=== PATIENT | male | born 1970 | race Two or more races ===

== ENCOUNTER 2020-11-18 18:58 | Inpatient (IN) | payer MEDICAID ==
[~2020-11-18] VITALS: Ht 180.3 cm; Wt 82.6 kg
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
[2020-11-18] MEDS ORDERED: ACETAMINOPHEN ES 500 MG TABLET ONE (20:00)
[2020-11-18] MEDS ORDERED: ACETAMINOPHEN 325 MG TABLET PO ONE (20:00)
[2020-11-18] MEDS ORDERED: KETOROLAC TROMETHAMINE INJ 30 MG/ML VIAL IV ONE (20:00)
[2020-11-18] MEDS ORDERED: IV NS 0.9% 1,000 ML BAG IV ONE ×2 (20:00→23:30)
[2020-11-18] MEDS ORDERED: KETOROLAC TROMETHAMINE 15 MG/ML VIAL ONE (20:00)
[2020-11-18 20:47] LABS: BASOPHILS % (AUTO) 0.2 % (0.0-2.0); EOSINOPHILS % (AUTO) 0.7 % (0.0-6.0); HEMATOCRIT 30 % (39-51); HEMOGLOBIN 10.1 g/dL (13.5-17.5); LYMPHOCYTES # (AUTO) 1.1 /CMM (0.8-4.8); LYMPHOCYTES % (AUTO) 11.9 % (20.0-44.0); MEAN CORPUSCULAR HGB CONC 33 g/dl (31.0-36.0); MEAN CORPUSCULAR VOLUME 97 fL (80-96); MONOCYTES % (AUTO) 10.6 % (2.0-12.0); NEUTROPHILS # (AUTO) 7.2 /CMM (1.8-8.9); NEUTROPHILS % (AUTO) 76.6 % (43.0-81.0); PLATELET COUNT (AUTO) 300 /CMM (150-450); RED BLOOD CELL COUNT(AUTO) 3.13 MIL/uL (4.5-6.0); WHITE BLOOD COUNT (AUTO) 9.4 K/uL (4.3-11.0)
[2020-11-18 21:00] LABS: ALBUMIN 2.6 g/dL (3.4-5.0); BILIRUBIN,DIRECT 0.7 mg/dL (0.0-0.2); BILIRUBIN,TOTAL 1.9 mg/dL (0.2-1.0); CALCIUM, SERUM 8.3 mg/dL (8.5-10.1); CREATININE 0.5 mg/dL (0.6-1.3); POTASSIUM 4.1 mmol/L (3.5-5.1); TOTAL PROTEIN, SERUM 7.3 g/dL (6.4-8.2)
--- NOTE | 2020-11-18 22:05 | NUR ---
NOTED ECCHYMOSIS R LOWER EXT AND GROIN. AWARE
[2020-11-18] MEDS ORDERED: PIPERACILLIN /TAZOBACTAM 3.375 G in IV D5W 50 ML IV ONE (22:30)
[2020-11-18] MEDS ORDERED: LEVOFLOXACIN 750 MG /D5W 150ML 150 ML IV ONE ×2 (22:30→22:37)
--- NOTE | 2020-11-18 22:35 | NUR ---
ER TALKING TO DR. ROSS REGARDING PT ADMISSION.
[2020-11-18] MEDS ORDERED: PIPERACILLIN /TAZOBACTAM 3.375 G VIAL IV ONE (22:37)
--- NOTE | 2020-11-18 22:50 | NUR ---
US TECH AT BED SIDE
--- NOTE | 2020-11-18 23:11 | NUR ---
Michael santiago in EDM - 11/18/20 at 2311 by KYAW FELICIA LUI TALKING TO DR. ROSS REGARDING PT ADMISSION.
--- NOTE | 2020-11-18 23:11 | NUR ---
LAB CALLED REGARDING NEGATIVE COVID RESULT.
--- NOTE | 2020-11-18 23:16 | NUR ---
NOTED HYPOTENSION, MD AWARE
[2020-11-18] MEDS ORDERED: MAGNESIUM HYDROXIDE 30 ML UDC PO PRN (23:30)
[2020-11-18] MEDS ORDERED: ZOLPIDEM TARTRATE 5 MG TABLET PO PRN (23:30)
[2020-11-18] MEDS ORDERED: ACETAMINOPHEN 325 MG TABLET PO PRN (23:30)
[2020-11-18] MEDS ORDERED: MAG HYDROX/AL HYDROX/SIMETH 30 ML UDC PO PRN (23:30)
[2020-11-18] MEDS ORDERED: Z GUARD REMEDY 2 OZ OINT TP PRN (23:30)
[2020-11-18] MEDS ORDERED: HYDROCODONE/APAP 5/325MG TABLET PO PRN (23:30)
[2020-11-18] MEDS ORDERED: ONDANSETRON HCL/PF 4 MG/2 ML VIAL IVP PRN (23:30)
--- NOTE | 2020-11-18 23:33 | NUR ---
REPORT GIVEN TO ALIDA
[2020-11-19] MEDS ORDERED: VANCOMYCIN 2 GM in IV D5W 500 ML IV ONE (00:30)
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
--- NOTE | 2020-11-19 00:52 | NUR ---
PT WAS TRANSFERRED TO RM 109 UNDER ACLS
[2020-11-19] MEDS ORDERED: VANCOMYCIN 1 GM VIAL ONE (01:14)
[2020-11-19 01:25] VITALS: BP 127/83
--- NOTE | 2020-11-19 02:00 | NUR ---
RN NOTE PATIENT HAS MULTIPLIES SKIN DISCOLORATION,TOOK ALL PICTURES AND PLACED IN CHART CONTINUE TO MONITOR.
[2020-11-19 04:00] VITALS: BP 107/63
[2020-11-19] MEDS ORDERED: PIPERACILLIN /TAZOBACTAM 2.25 G VIAL IV ONE (04:16)
[2020-11-19] MEDS ORDERED: ZOSYN IVPB 4.5 G in IV D5W 50ml IV SCH (05:00)
[2020-11-19 06:12] LABS: BASOPHILS % (AUTO) 0.4 % (0.0-2.0); EOSINOPHILS % (AUTO) 2.4 % (0.0-6.0); HEMATOCRIT 28 % (39-51); HEMOGLOBIN 8.9 g/dL (13.5-17.5); LYMPHOCYTES # (AUTO) 1.2 /CMM (0.8-4.8); MEAN CORPUSCULAR HGB CONC 32 g/dl (31.0-36.0); MEAN CORPUSCULAR VOLUME 99 fL (80-96); MONOCYTES # (AUTO) 0.7 /CMM (0.1-1.30); MONOCYTES % (AUTO) 11.8 % (2.0-12.0); NEUTROPHILS # (AUTO) 4.1 /CMM (1.8-8.9); NEUTROPHILS % (AUTO) 66.4 % (43.0-81.0); PLATELET COUNT (AUTO) 227 /CMM (150-450); WHITE BLOOD COUNT (AUTO) 6.2 K/uL (4.3-11.0)
--- NOTE | 2020-11-19 06:34 | NUR ---
RN CLOSING NOTE PATIENT REMAINS ON ALERT ORIENTED X2 VERBALLY RESPONSIVE NO SOB NOT ACUTE DISTRESS NOTED,IV SITE IS ON RIGHT FOREARM INTACT PATIENT,INCONTINENT TO BOWEL AND BLADDER ALL DUE MEDS GIVEN MD ORDERED KEEP CLEAN AND DRY ALL THE TIME,KEPT CALL LIGHT WITHIN REACH,KEPT COMFORTABLE ALL NEEDS MET.ENDORSE NEXT COMING SHIFT FOR CONTINUATION OF CARE.
[2020-11-19 07:34] LABS: ALBUMIN 2.1 g/dL (3.4-5.0); BILIRUBIN,TOTAL 1.6 mg/dL (0.2-1.0); CREATININE 0.5 mg/dL (0.6-1.3); MAGNESIUM 2.1 mg/dL (1.8-2.4); PHOSPHORUS 3.5 mg/dL (2.5-4.9); TOTAL PROTEIN, SERUM 6.2 g/dL (6.4-8.2)
[2020-11-19 07:37] LABS: THYROID STIMULATING HORMONE 1.016 uIU/mL (0.358-3.74)
[2020-11-19 08:00] VITALS: BP 128/80
[2020-11-19] MEDS: VANCOMYCIN 1 GM in IV D5W 250 ML IV SCH ×2 (08:13→17:44)
--- NOTE | 2020-11-19 08:50 | NUR ---
WOUND CARE CONSULT: REVIEWED CHART, NURSING DOCUMENTATION AND PHOTOS WHICH INDICATE DRY ABRASIONS, DISCOLORATIONS, LUIS TO RT HIP AND THIGH AREA, LEFT KNEE DRY SCAB AND INTACT DEEP TISSUE INJURIES TO BILATERAL BUTTOCKS, PRESENT ON ADMISSION. RECOMMENDATIONS MADE FOR SKIN PROTECTION. DISCUSSED WITH NURSING STAFF. PT IS ON [facility] LOW AIRLOSS BED. MD IN AGREEMENT WITH PLAN OF CARE.
[2020-11-19 12:00] VITALS: BP 139/79
[2020-11-19] MEDS: PIPERACILLIN /TAZOBACTAM 4.5 G in IV D5W 50 ML IV SCH ×2 (13:03→18:32)
[2020-11-19 16:00] VITALS: BP 142/71
--- NOTE | 2020-11-19 19:20 | NUR ---
RN OPENING NOTE RECEIVE PATIENT IN BED SITTING,ALERT ORIENTED VERBALLY RESPONSIVE NO SOB NOT ACUTE DISTRESS NOTED,IV SITE IS ON RIGHT AC INTACT PATENT,INCONTINENT TO BOWEL/BLADDER,CALL LIGHT WITHIN REACH,SAFETY MEASURE IMPLEMENT,BED IN LOW POSITION AND LOCKED,BED ALARM IS ON CONTINUE TO MONITOR.
--- NOTE | 2020-11-19 19:23 | NUR ---
RN CLOSING NOTE Patient is alert and oriented . Patient is breathing even and unlabored. on ROOM AIR with 02 sat of 98%. Bed is in lowest and locked position.Patient will be monitored. Call light within reach. Endorsed to next shift for GERMAN
[2020-11-19] MEDS ORDERED: THIAMINE HCL 100 MG TABLET PO SCH (19:30)
[2020-11-19] MEDS ORDERED: FOLIC ACID 1 MG TABLET PO SCH (19:30)
[2020-11-19 20:00] VITALS: BP 117/74
--- NOTE | 2020-11-19 21:00 | NUR ---
2100 DR ROSS NOTIFIED OF PRELIMINARY BLOOD CULTURE RESULT ANAEROBIC GRAM + COCCI IN CHAINS WITH NO ORDER MADE.
--- NOTE | 2020-11-19 21:10 | NUR ---
RN NOTE AT 2100 HE IS SITTING ON BED AND REMOVED IV LINE,CLEANED WITH NS AND DRESSED WITH DRESSING, STARTED A NEW IV LINE ON LEFT HAND #22 G WITH GOOD BLOOD RETURN AND EDUCATED HIM NOT REMOVE HE VERBALIZED UNDERSTOOD CONTINUE TO MONITOR.
--- NOTE | 2020-11-19 21:37 | NUR ---
2136 SUMMONED TO PATIENT'S ROOM, PATIENT SITTING ON EDGE OF BED VERY AGITATED AND STATING HE WANTS TO LEAVE. TALKED TO PATIENT AND ASKED HIM IF THERE'S ANYTHING THAT WE CAN DO TO HELP HIM AND TO MAKE HIM MORE COMFORTABLE BUT DECLINED OFFER. HE STARTED YELLING AND CURSING AT STAFF. DR. ROSS MADE AWARE OF PATIENT'S BEHAVIOR WITH ORDER TO GIVE PATIENT ATIVAN NEEDED FOR AGITATION, HOWEVER, PATIENT REMOVED HIS IV SITES AND HIS HEART MONITOR AND STARTED GETTING DRESSED. HE SAID HE'S CALLING A CAB HIMSELF. DR. ROSS WAS NOTIFIED AGAIN THAT PATIENT REMOVED HIS IV LINES AND IS ADAMANT TO LEAVE THE HOSPITAL AND SHE SAID OK SINCE PATIENT IS ALERT AND ABLE TO SIGN AMA. STACIA IRWIN EXPLAINED TO PATIENT ONCE AGAIN THE RISKS OF LEAVING AMA BUT TO NO AVAIL. ASSISTED PATIENT WITH HIS BELONGINGS AND WHEELED HIM TO LOBBY ACCOMPANIED BY NURSE.
--- NOTE | 2020-11-19 21:40 | NUR ---
RN NOTE PATIENT LEFT AMA AFTER HE SIGNED AMA PAPER EDUCATED HIM RISK OF LEAVE AGAINST MEDICAL ADVICE, HE INSISTED TO LEAVE,DR ROSS NOTIFIED AND SAID HE IS ALERT AND ABLE TO MAKE DECISION BY SELF,HE LEFT UNIT OF [facility] ACCOMPANIED BY HOSPITAL SECURITY GUARDS.
[2020-11-19] MEDS ORDERED: LORAZEPAM INJ 2 MG/ML VIAL IM PRN (22:00)
== END 2020-11-19 22:56 | disposition left against medical advice (07) | DRG 139 ==
LOC: ER 18:59 → TELE1 23:14
PROVIDERS: ADMIT Student in an Organized Health Care Education/Training Program; ATTEND Nurse Practitioner Acute Care
DX: J15.9 Unspecified bacterial pneumonia (principal); E44.0 Moderate protein-calorie malnutrition; E87.1 Hypo-osmolality and hyponatremia; Z20.822 Contact with and (suspected) exposure to COVID-19; R74.01 Elevation of levels of liver transaminase levels; I10 Essential (primary) hypertension; K42.9 Umbilical hernia without obstruction or gangrene; D53.9 Nutritional anemia, unspecified; Z59.0 Homelessness; F10.10 Alcohol abuse, uncomplicated; E86.1 Hypovolemia; Z96.641 Presence of right artificial hip joint; Z68.25 Body mass index [BMI] 25.0-25.9, adult
CPT/HCPCS: 36415; 71045-TC; 73552; 73590-TC; 76705-TC; 80048-TC; 80053-TC; 80061-TC; 80076-TC; 83605-TC; 83735-TC; 84100-TC; 84443-TC; 85025-TC; 87040-TC; 87081-TC; 87186-TC; 93971-TC; C9803; G0378; G0480; J1885; J1956; J2543; J3370; J7030; J7050; J7060; U0003

== ENCOUNTER 2020-12-08 23:20 | Emergency (ER) | payer MEDICAID, MEDICARE ==
[~2020-12-08] VITALS: Ht 180.3 cm; Wt 82.6 kg
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
[2020-12-08] MEDS ORDERED: KETOROLAC TROMETHAMINE INJ 60 MG/2 ML VIAL IM ONE ×2 (23:30→23:33)
[2020-12-09] MEDS ORDERED: KETO10TA2 PO (00:53)
[2020-12-09 05:14] VITALS: BP 115/70
--- NOTE | 2020-12-09 05:35 | NUR ---
Patient discharged to home in stable condition. Written and verbal after care instructions given. Patient verbalizes understanding of instruction.Mr Wilson Request for crutches and walk with crutches to the exit
== END 2020-12-09 05:36 | disposition home or self-care (01) ==
LOC: ER 23:20
DX: M62.838 Other muscle spasm (principal); I10 Essential (primary) hypertension; Z98.890 Other specified postprocedural states; F17.200 Nicotine dependence, unspecified, uncomplicated; Z59.0 Homelessness
CPT/HCPCS: 93971; 96372; 99284; J1885

== ENCOUNTER 2022-09-03 00:51 | Emergency (ER) | payer MEDICAID, MEDICARE, OTHER ==
[~2022-09-03] VITALS: Ht 160 cm; Wt 81.6 kg
[~2022-09-03 00:51] MED LIST: KETO10TA2 PO
[2022-09-03 03:18] LABS: BASOPHILS % (AUTO) 0.4 % (0.0-2.0); EOSINOPHILS % (AUTO) 2.5 % (0.0-6.0); HEMATOCRIT 40 % (39-51); HEMOGLOBIN 13.4 g/dL (13.5-17.5); LYMPHOCYTES # (AUTO) 1.4 K/uL (0.8-4.8); LYMPHOCYTES % (AUTO) 25.3 % (20.0-44.0); MEAN CORPUSCULAR HGB CONC 33 g/dl (31.0-36.0); MEAN CORPUSCULAR VOLUME 96 fL (80-96); MONOCYTES # (AUTO) 0.6 K/uL (0.1-1.30); MONOCYTES % (AUTO) 10.6 % (2.0-12.0); NEUTROPHILS # (AUTO) 3.4 K/uL (1.8-8.9); NEUTROPHILS % (AUTO) 61.2 % (43.0-81.0); PLATELET COUNT (AUTO) 103 K/uL (150-450); RED BLOOD CELL COUNT(AUTO) 4.19 MIL/uL (4.5-6.0); WHITE BLOOD COUNT (AUTO) 5.5 K/uL (4.3-11.0)
[2022-09-03 04:00] LABS: CALCIUM, SERUM 8.8 mg/dL (8.5-10.1); CREATININE 0.7 mg/dL (0.6-1.3); POTASSIUM 3.7 mmol/L (3.5-5.1)
[2022-09-03 04:06] LABS: BILIRUBIN,DIRECT 0.7 mg/dL (0.0-0.2); BILIRUBIN,TOTAL 1.7 mg/dL (0.2-1.0); TOTAL PROTEIN, SERUM 8.6 g/dL (6.4-8.2)
--- NOTE | 2022-09-03 06:14 | NUR ---
PATIENT IS AWAKE, ALERT AND OX4. DENIED SI/HI AND REPORTED FEELING WELL AND WANTS TO LEAVE. AMBULATORY WITH STEADY GAITS. PO INTAKE TOLERATED WELL. AWARE. OK TO DC.
[2022-09-03 06:20] VITALS: BP 148/85
--- NOTE | 2022-09-03 06:20 | NUR ---
Patient discharged to home in stable condition. Written and verbal after care instructions given. Patient verbalizes understanding of instruction.
== END 2022-09-03 06:21 | disposition home or self-care (01) ==
LOC: ER 00:52
DX: F32.A Depression, unspecified (principal); F10.129 Alcohol abuse with intoxication, unspecified; I10 Essential (primary) hypertension; F17.200 Nicotine dependence, unspecified, uncomplicated; Z98.890 Other specified postprocedural states; Z79.899 Other long term (current) drug therapy; Z59.00 Homelessness unspecified; Y90.5 Blood alcohol level of 100-119 mg/100 ml
CPT/HCPCS: 36415; 80048-TC; 80076-TC; 85025-TC; G0480

== ENCOUNTER 2022-10-07 21:53 | Emergency (ER) | payer MEDICARE, OTHER ==
[~2022-10-07] VITALS: Ht 167.6 cm; Wt 90.7 kg
[2022-10-07 22:24] VITALS: BP 131/67
--- NOTE | 2022-10-08 02:18 | NUR ---
left without being seen
== END 2022-10-08 02:19 | disposition left against medical advice (07) ==
LOC: ER 21:57
DX: M19.90 Unspecified osteoarthritis, unspecified site (principal); I10 Essential (primary) hypertension; Z53.21 Procedure and treatment not carried out due to patient leaving prior to being seen by health care provider

== ENCOUNTER 2022-10-08 19:41 | Emergency (ER) | payer OTHER ==
[~2022-10-08] VITALS: Ht 180.3 cm; Wt 54.4 kg
[2022-10-08 20:02] VITALS: BP 154/78
--- NOTE | 2022-10-08 20:05 | NUR ---
[id number]. ANXIOUS AND FEELING COLD. AAOX4. PLACED IN RM 18. WARM BLANKET PROVIDED. VITALS CHECKED.
--- NOTE | 2022-10-08 22:13 | NUR ---
Patient discharged to home in stable condition. Written and verbal after care instructions given. Patient verbalizes understanding of instruction.
== END 2022-10-08 22:14 | disposition home or self-care (01) ==
LOC: ER 19:50
DX: F41.9 Anxiety disorder, unspecified (principal); I10 Essential (primary) hypertension; F17.200 Nicotine dependence, unspecified, uncomplicated; Z59.00 Homelessness unspecified

== ENCOUNTER 2022-10-10 07:03 | Inpatient (IN) | payer MEDICARE, OTHER ==
[~2022-10-10] VITALS: Ht 177.8 cm; Wt 85.0 kg
[2022-10-10] VITALS (42 sets, daily range): BP systolic 36–93; BP diastolic 23–68
--- NOTE | 2022-10-10 07:30 | NUR ---
DEANDRA FROM OUTSIDE [facility] C/O ARTHRITIS PAIN, AND ASKING FOR WATER.
[2022-10-10] MEDS ORDERED: ACETAMINOPHEN ES 500 MG TABLET ONE (07:45)
--- NOTE | 2022-10-10 07:45 | NUR ---
BREAKFAST TRAY GIVEN
[2022-10-10] MEDS ORDERED: ACETAMINOPHEN ES 500 MG TABLET PO ONE (08:00)
[2022-10-10] MEDS ORDERED: MAG HYDROX/AL HYDROX/SIMETH 30 ML UDC PO ONE (09:30)
[2022-10-10] MEDS ORDERED: LIDOCAINE VISCOUS 2% UD 15 ML UDC MM ONE (09:30)
[2022-10-10] MEDS ORDERED: FAMOTIDINE (20 MG) 20 MG TABLET PO ONE (09:30)
[2022-10-10] MEDS ORDERED: FAMOTIDINE (20 MG) 20 MG TABLET ONE (09:43)
[2022-10-10] MEDS ORDERED: LIDOCAINE VISCOUS 2% UD 15 ML UDC ONE (09:43)
[2022-10-10] MEDS ORDERED: MAG HYDROX/AL HYDROX/SIMETH 30 ML UDC ONE (09:43)
[2022-10-10] MEDS ORDERED: NOREPINEPHRINE 4 MG/4 ML AMPUL IV ONE (11:27)
[2022-10-10] MEDS ORDERED: IV NS 0.9% 1,000 ML IV ONE (11:30)
--- NOTE | 2022-10-10 11:37 | NUR ---
Patient was started on levophed 5 mcg/kg/min per MD order at 1137. BP was monitored every 3 minutes to maintain BP WNL, rate was increased to 6 mcg/kg/min at 1218. Will continue to monitor patient and titrate levophed as needed.
[2022-10-10 11:45] LABS: BASOPHILS % (AUTO) 0.4 % (0.0-2.0); EOSINOPHILS % (AUTO) 0.6 % (0.0-6.0); HEMATOCRIT 48 % (39-51); HEMOGLOBIN 15.1 g/dL (13.5-17.5); LYMPHOCYTES # (AUTO) 0.4 K/uL (0.8-4.8); LYMPHOCYTES % (AUTO) 20.1 % (20.0-44.0); MEAN CORPUSCULAR HGB CONC 31 g/dl (31.0-36.0); MEAN CORPUSCULAR VOLUME 99 fL (80-96); MONOCYTES # (AUTO) 0.1 K/uL (0.1-1.30); NEUTROPHILS # (AUTO) 1.5 K/uL (1.8-8.9); NEUTROPHILS % (AUTO) 72.9 % (43.0-81.0); PLATELET COUNT (AUTO) 80 K/uL (150-450); RED BLOOD CELL COUNT(AUTO) 4.87 MIL/uL (4.5-6.0)
--- NOTE | 2022-10-10 11:45 | NUR ---
RT NOTE PATIENT ORALLY INTUBATED WITH A 7.5 ETT SECURED AT 25 CM AT THE LIP BY ER MD. NO COMPLICATIONS NOTED. POSITIVE CO2 COLOR CHANGE NOTED ON CO2 INDICATOR, EQUAL BILATERAL BREATH SOUNDS AND CHEST RISE. VENT SETTINGS PER MD ORDER: AC 20, 500, 100%, +10. VENT PLUGGED INTO RED OUTLET. BVM AT HEAD OF BED. ALARMS ARE SET AND AUDIBLE. NO SOB NOTED AT THIS TIME. WILL CONTINUE TO MONITOR THE PATIENT CLOSELY.
[2022-10-10 11:58] LABS: CALCIUM, SERUM 8.8 mg/dL (8.5-10.1); CARBON DIOXIDE 16 mmol/L (21-32); CHLORIDE 94 mmol/L (98-107); CREATININE 3.6 mg/dL (0.6-1.3); GLUCOSE 66 mg/dL (74-106); SODIUM SERUM 134 mmol/L (136-145); UREA NITROGEN, BLOOD 60 mg/dL (7-18)
[2022-10-10] MEDS ORDERED: NOREPINEPHRINE 8 MG in IV NS 0.9% 242 ML IV PRN ×2 (12:00→16:00)
[2022-10-10 12:03] LABS: ALANINE AMINOTRANSFERASE 83 U/L (12-78); ALBUMIN 2.2 g/dL (3.4-5.0); ALCOHOL, BLOOD 25 mg/dL (0-0); ALKALINE PHOSPHATASE 49 U/L (46-116); ASPARTATE AMINOTRANSFERASE 183 U/L (15-37); BILIRUBIN,DIRECT 2.4 mg/dL (0.0-0.2); BILIRUBIN,TOTAL 3.4 mg/dL (0.2-1.0); TOTAL PROTEIN, SERUM 7.5 g/dL (6.4-8.2)
[2022-10-10] MEDS ORDERED: MIDAZOLAM 50 MG/10 ML VIAL ONE (12:06)
--- NOTE | 2022-10-10 12:08 | NUR ---
SUBMITTED MOVE PACKET
[2022-10-10 12:30] LABS: THYROID STIMULATING HORMONE 1.004 uIU/mL (0.358-3.74)
[2022-10-10] MEDS ORDERED: MIDAZOLAM HCL 50 MG in IV NS 0.9% 40 ML IV PRN (12:30)
[2022-10-10] MEDS ORDERED: VANCOMYCIN HCL 1.25 GM in IV D5W 260 ML IV ONE (12:30)
[2022-10-10] MEDS ORDERED: CEFEPIME 1 GM in IV D5W 50 ML IV ONE ×2 (12:30→16:00)
[2022-10-10] MEDS: NOREPINEPHRINE 8 MG in IV NS 0.9% 242 ML IV PRN ×3 (12:41→16:01)
--- NOTE | 2022-10-10 12:55 | NUR ---
@ 1132: BP 82/43, 90% on room air, 143 HR. @ 1137: BP 89/54, HR 148. Intubated at 1145 with 27 cm depth airway. @ 1154: BP 94/54, HR 150. Levophed rate increased to 0.6 mcg/kg/min. @ 1200: BP 127/96, HR 145, 97% O2. Levophed rate was decreased to 0.5 mcg/kg/min. @ 1210 BP 92/68, Levophed again increased to 0.6 mcg/kg/min.
[2022-10-10] MEDS ORDERED: KEY,NONCONTROL,TO KEEP IN PYXI 1 EA MC ONE (12:58)
--- NOTE | 2022-10-10 13:46 | NUR ---
URINE SAMPLE OBTAINED
--- NOTE | 2022-10-10 13:47 | NUR ---
COVID SWAB OBTAINED
--- NOTE | 2022-10-10 13:50 | NUR ---
PATIENT COVID SWAB AND URINE COLLECTED, SENT TO LAB
[2022-10-10] MEDS ORDERED: ROCURONIUM BROMIDE 50 MG/5 ML IV ONE (14:09)
[2022-10-10] MEDS ORDERED: ETOMIDATE 2 MG/ML VIAL IV ONE (14:09)
[2022-10-10 14:51] LABS: BILIRUBIN,URINE 2+ (NEGATIVE); COLOR,URINE YELLOW (YELLOW); LEUKOCYTE ESTERASE ,URINE NEGATIVE (NEGATIVE); NITRITE, URINE NEGATIVE (NEGATIVE); PROTEIN,URINE 2+ mg/dl (NEGATIVE); UGLUCOSE TRACE mg/dL (NEGATIVE); UROBILINOGEN,URINE >=8.0 EU/dL (0.2)
--- NOTE | 2022-10-10 15:04 | NUR ---
Central line R IJ inserted by
--- NOTE | 2022-10-10 15:06 | NUR ---
Rm 261
--- NOTE | 2022-10-10 15:20 | NUR ---
Report given to STACIA Diallo
[2022-10-10] MEDS ORDERED: MAG HYDROX/AL HYDROX/SIMETH 30 ML UDC PO PRN (16:00)
[2022-10-10] MEDS ORDERED: MAGNESIUM HYDROXIDE 30 ML UDC PO PRN (16:00)
[2022-10-10] MEDS ORDERED: MIDAZOLAM HCL 100 MG in IV NS 0.9% 80 ML IV PRN (16:00)
[2022-10-10] MEDS ORDERED: PHARMACY TO CHANGE PO MEDS TO GT/NG XX PRN (16:00)
[2022-10-10] MEDS ORDERED: ONDANSETRON HCL/PF 4 MG/2 ML VIAL IVP PRN (16:00)
[2022-10-10] MEDS ORDERED: IV NS 0.9% 1,000 ML IV PRN (16:00)
[2022-10-10] MEDS ORDERED: ACETAMINOPHEN 325 MG TABLET PO PRN (16:00)
[2022-10-10] MEDS ORDERED: Z GUARD REMEDY 4 OZ OINT TP PRN (16:00)
[2022-10-10] MEDS ORDERED: MAG HYDROX/AL HYDROX/SIMETH 30 ML UDC GT PRN (16:04)
[2022-10-10] MEDS ORDERED: MAGNESIUM HYDROXIDE 30 ML UDC GT PRN (16:04)
--- NOTE | 2022-10-10 16:43 | NUR ---
PT ARRIVED IN ICU VIA GURNEY. LEVOPHED AND VERSED GTTS INFUSING PER MD ORDERS. PT IS SEDATED AND INTUBATED. HR HIGH IN THE 150'S.
[2022-10-10] MEDS ORDERED: PHENYLEPHRINE 50 MG in IV NS 0.9% 245 ML IV PRN (17:30)
[2022-10-10] MEDS: HYDROCORTISONE SOD SUCCINATE 100 MG/2 ML VIAL IV SCH ×2 (17:33→20:16)
--- NOTE | 2022-10-10 18:05 | NUR ---
INITIAL ABG RESULTS POST INTUBATION RECEIVED FROM RT. PLACED CALL TO DR. AKERS-RANGE MANAGER PULMONARY. ORDERS RECEIVED FOR VENT CHANGES, 2 AMPS OF BICARB PUSH, REPEAT ABG POST 2 HRS. ORDERS PLACED AND CARRIED OUT.
[2022-10-10] MEDS ORDERED: SODIUM BICARBONATE SYR 50 MEQ/50 ML DISP.SYRIN IV ONE ×2 (18:30→21:30)
[2022-10-10] MEDS: NOREPINEPHRINE 32 MG in IV NS 0.9% 218 ML IV PRN (20:00)
--- NOTE | 2022-10-10 20:03 | NUR ---
REMEDIAL READING TEACHER GLUCOSE 60 CLINICAL SECRETARY EATON NOTIFIED; ORDERS RECEIVED.
--- NOTE | 2022-10-10 20:20 | NUR ---
SHEAR OPERATOR HELPER PT MAXED ON LEVO AND MILVIA WITH VITAL SIGNS HR 178 BP 73/56 ORDER RCD FOR VASOPRESSIN
[2022-10-10] MEDS ORDERED: DEXTROSE 50%-WATER 50 ML DISP.SYRIN IVP ONE (20:30)
--- NOTE | 2022-10-10 20:30 | NUR ---
HAND SEWER PT NOTED TO BE IN RAPID AFIB RATE 150-160; NOTIFIED PRODUCT DEVELOPMENT SCIENTIST GREY ROLL MAN WITH ORDERS TO HAVE ER MD CARDIOVERT. ER MD GOLDBERGO NOTIFIED OF CARDIOVERSION; CARDIOVERTED AT 125 JOULES; EKG POST CARDIOVERSION SHOW SINUS TACHYCARDIA..
[2022-10-10] MEDS: VASOPRESSIN INJ 40 UNIT in IV NS 0.9% 38 ML IV PRN (20:35)
[2022-10-10] MEDS ORDERED: ALBUMIN 25% 12.5 GM/50 ML BOTTLE IV ONE ×2 (21:00→21:30)
--- NOTE | 2022-10-10 21:03 | NUR ---
G DONE STACIA STEWART NOTIFIED.
[2022-10-10] MEDS ORDERED: ALBUMIN 25% 12.5 GM in PREMIX 1 EA IV ONE (21:30)
--- NOTE | 2022-10-10 21:30 | NUR ---
RECREATION FACILITIES SUPERVISOR ABG RESULTS pH 7.039 pCO2 60.6 pO2 59.1 HCO3 [address] AKERS WITH ORDERS RCD FOR 2 AMPS BICARB.
--- NOTE | 2022-10-10 21:30 | NUR ---
DIRECTOR OF CATERING UNABLE TO COLLECT SPUTUM SPECIMEN FOR CULTURE; PT IS DRY
[2022-10-10] MEDS: PHENYLEPHRINE 100 MG in IV NS 0.9% 240 ML IV PRN (21:52)
--- NOTE | 2022-10-10 23:07 | NUR ---
STUDIO OPERATION ENGINEER GLUCOSE 38 CONFERENCE CENTER COORDINATOR EATON NOTIFIED; ORDERS RECEIVED.
[2022-10-10] MEDS: DEXTROSE 50%-WATER 50 ML DISP.SYRIN IVP PRN (23:14)
[2022-10-10] MEDS ORDERED: IV D5/ 0.9% NACL 1,000 ML IV PRN (23:30)
[2022-10-11] VITALS (58 sets, daily range): BP systolic 0–158; BP diastolic 0–90
[2022-10-11] MEDS: NOREPINEPHRINE 32 MG in IV NS 0.9% 218 ML IV PRN ×4 (01:06→17:38)
--- NOTE | 2022-10-11 01:10 | NUR ---
FAMILY LAW ATTORNEY GLUCOSE 34 EXTERMINATOR EATON NOTIFIED; ORDERS RECEIVED.
[2022-10-11] MEDS: DEXTROSE 50%-WATER 50 ML DISP.SYRIN IVP PRN ×11 (01:13→20:10)
[2022-10-11] MEDS: IV 10% DEXTROSE 1,000 ML IV PRN ×3 (01:34→18:37)
--- NOTE | 2022-10-11 02:01 | NUR ---
DEMOGRAPHER GLUCOSE 23 PSYCHOMETRIST EATON NOTIFIED; ORDERS RECEIVED.
[2022-10-11] MEDS ORDERED: DEXTROSE 50%-WATER 50 ML DISP.SYRIN ONE (02:11)
[2022-10-11] MEDS: PHENYLEPHRINE 100 MG in IV NS 0.9% 240 ML IV PRN ×3 (04:00→17:01)
[2022-10-11] MEDS: HYDROCORTISONE SOD SUCCINATE 100 MG/2 ML VIAL IV SCH ×3 (04:39→20:10)
[2022-10-11 05:05] LABS: CALCIUM, SERUM 6.5 mg/dL (8.5-10.1); CREATININE 4.9 mg/dL (0.6-1.3); MAGNESIUM 2.8 mg/dL (1.8-2.4); POTASSIUM 4.6 mmol/L (3.5-5.1)
[2022-10-11 05:13] LABS: PHOSPHORUS 12.1 mg/dL (2.5-4.9)
[2022-10-11 05:40] LABS: EOSINOPHILS % (AUTO) 0.4 % (0.0-6.0); HEMATOCRIT 44 % (39-51); HEMOGLOBIN 13.9 g/dL (13.5-17.5); LYMPHOCYTES # (AUTO) 0.4 K/uL (0.8-4.8); LYMPHOCYTES % (AUTO) 7.9 % (20.0-44.0); MEAN CORPUSCULAR HGB CONC 32 g/dl (31.0-36.0); MEAN CORPUSCULAR VOLUME 98 fL (80-96); MONOCYTES # (AUTO) 0.2 K/uL (0.1-1.30); MONOCYTES % (AUTO) 2.9 % (2.0-12.0); NEUTROPHILS # (AUTO) 4.8 K/uL (1.8-8.9); NEUTROPHILS % (AUTO) 88.8 % (43.0-81.0); RED BLOOD CELL COUNT(AUTO) 4.48 MIL/uL (4.5-6.0); WHITE BLOOD COUNT (AUTO) 5.4 K/uL (4.3-11.0)
[2022-10-11 05:41] LABS: PLATELET COUNT (AUTO) 22 K/uL (150-450)
[2022-10-11 06:39] LABS: BASOPHILS % (MANUAL) 0 % (0.0-2.0); EOSINOPHILS % (MANUAL) 0 % (0-4); LYMPHOCYTES % (MANUAL) 29 % (16-48); MONOCYTES % (MANUAL) 10 % (0-11.0); NEUTROPHILS % (MANUAL) 61 (42-76)
--- NOTE | 2022-10-11 07:00 | NUR ---
AIRCRAFT LANDING GEAR INSPECTOR PT HEMODYNAMICALLY UNSTABLE TO TURN AND REPOSITION
--- NOTE | 2022-10-11 07:30 | NUR ---
OPENING NOTE: REPORT RECEIVED FROM TERRY PALOMO. PT IS EXTREMELY UNSTABLE. PT IS MAX'D ON 3 PRESSORS, SEDATION TURNED OFF AT THIS TIME. PT'S CURRENT TEMP IS 103.2 ORALLY, ICE PACKS APPLIED. PT IS TOO UNSTABLE FOR REPOSITIONING AT THIS TIME, WILL CONTINUE TO MONITOR. PT IS FULL CODE.
[2022-10-11] MEDS: BLOOD SUGAR DIAGNOSTIC 1 EACH STRIP IN SCH ×4 (08:17→20:10)
[2022-10-11] MEDS: VASOPRESSIN INJ 40 UNIT in IV NS 0.9% 38 ML IV PRN (08:23)
[2022-10-11] MEDS ORDERED: DEXTROSE 50%-WATER 50 ML DISP.SYRIN IVP STA ×2 (09:23→09:51)
[2022-10-11] MEDS ORDERED: VANCOMYCIN HCL 0.75 GM in IV D5W 250 ML IV SCH ×2 (11:00→12:00)
--- NOTE | 2022-10-11 11:14 | NUR ---
DR GARY NOTIFIED OF CRITICAL ABG RESULTS. NO ORDERS RECEIVED AT THIS TIME
[2022-10-11] MEDS ORDERED: SODIUM BICARBONATE SYR 50 MEQ/50 ML DISP.SYRIN IV ONE ×2 (11:30→21:37)
[2022-10-11] MEDS ORDERED: CEFEPIME 2 GM in IV D5W 100 ML IV SCH (12:00)
[2022-10-11] MEDS: GLUCAGON,HUMAN RECOMBINANT 1 MG/VIAL VIAL IV PRN ×3 (13:07→13:59)
[2022-10-11 13:19] LABS: BAND % (MANUAL) 28 % (0.0-5.0); BASOPHILS % (MANUAL) 0 % (0.0-2.0); EOSINOPHILS % (MANUAL) 0 % (0-4); LYMPHOCYTES % (MANUAL) 9 % (16-48); MONOCYTES % (MANUAL) 10 % (0-11.0); NEUTROPHILS % (MANUAL) 53 (42-76)
--- NOTE | 2022-10-11 19:11 | NUR ---
END OF SHIFT NOTE: PT IS UNRESPONSIVE, NO SEDATION. CONTINUES TO HAVE A STRONG FEMORAL PULSE BY DOPPLER AND IS IN SR IN THE 80'S. NO BP CAN BE OBTAINED FOR THE PAST SEVERAL HOURS, MD'S AWARE. BLOOD GLUCOSE WAS LOW MOST OF THE SHIFT, 11 DOSES OF D50 GIVEN PER MD ORDERS AND 3 DOSES OF GLUCOGON. D10 INFUSING AT 150ML/HR. MAX DOSE OF LEVOPHED, MILVIA-SYNEPHRINE AND VASOPRESSIN INFUSING PER MD ORDERS. PT CHECKED ON FREQUENTLY BY NURSING STAFF.
--- NOTE | 2022-10-11 19:46 | NUR ---
WELLNESS COACH PT ANURIC UNABLE TO COLLECT URINE SPECIME FOR CULTURE
--- NOTE | 2022-10-11 20:11 | NUR ---
PROTOTYPE FABRICATOR BLOOD GLUCOSE READS LO D50 GIVEN ORDERED
[2022-10-11] MEDS ORDERED: EPINEPHRINE (1:10,000) SYRINGE 1 MG/10 ML DISP.SYRIN IVP ONE (21:37)
[2022-10-11] MEDS ORDERED: CALCIUM CHLORIDE 1,000 MG/10 ML DISP.SYRIN IV ONE (21:37)
--- NOTE | 2022-10-11 21:38 | NUR ---
MEDICAL IMAGING TECHNICIAN AT 2129 PT NOTED ASYSTOLE ON THE MONITOR CODE BLUE CALLED PER ACLS. PT MAXED ON LEVO, MILVIA AND VASOPRESSIN. ROSC UNSUCCESFUL. PT PRONOUNCED AT 2137.
--- NOTE | 2022-10-11 21:49 | NUR ---
SERVICES MGR PT RELEASED BY CRM ANALYST; S/W JESSICA.
--- NOTE | 2022-10-11 22:01 | NUR ---
OAKES MACHINE OPERATOR BODY RELEASED BY [employer] Kurtis/Janene MONTOYA; REFERENCE NUMBER [id number]
--- NOTE | 2022-10-11 22:45 | NUR ---
CUSTOMER SERVICE SECURITY OFFICER PRIMARY AND CHARGE NURSE RENDERED POST MORTEM CARE. SECURITY CALLED TO COMPENSATION EXPERT BODY. NO NEXT OF KIN INFO AVAILABLE.
[2022-10-13 08:52] LABS: ABG BASE EXCESS -21.8 mmol/L; ABG OXYGEN SATURATION 83.9 % (92.0-98.5); ABG PCO2 56.2 mmHg (35.0-45.0); ABG PO2 61.1 mmHg (75.0-100.0); AaDO2 595.7 mmHg; COHb 0.6 % (0.5-1.5); MetHb 0.5 % (0.0-1.5); SITE, ABG Right Femoral; VENT MODE, BG AC 26 550 100% +10
[2022-10-13] MEDS ORDERED: VANCOMYCIN HCL 0.75 GM in IV D5W 250 ML IV SCH (12:00)
== END 2022-10-11 21:38 | DRG 871 ==
LOC: ER 07:09 → ICU 15:19
PROVIDERS: ADMIT Internal Medicine; ATTEND Nurse Practitioner Family
PROC: 5A1945Z Respiratory Ventilation, 24-96 Consecutive Hours (ICD-10-PCS; principal; 2022-10-10)
PROC: 0BH17EZ Insertion of Endotracheal Airway into Trachea, Via Natural or Artificial Opening (ICD-10-PCS; 2022-10-10)
PROC: 5A2204Z Restoration of Cardiac Rhythm, Single (ICD-10-PCS; 2022-10-11)
PROC: 5A2204Z Restoration of Cardiac Rhythm, Single (ICD-10-PCS; 2022-10-11)
DX: A41.9 Sepsis, unspecified organism (principal); D61.89 Other specified aplastic anemias and other bone marrow failure syndromes; G93.41 Metabolic encephalopathy; J15.6 Pneumonia due to other Gram-negative bacteria; J96.01 Acute respiratory failure with hypoxia; R65.21 Severe sepsis with septic shock; N17.0 Acute kidney failure with tubular necrosis; E43 Unspecified severe protein-calorie malnutrition; J69.0 Pneumonitis due to inhalation of food and vomit; J96.02 Acute respiratory failure with hypercapnia; A09 Infectious gastroenteritis and colitis, unspecified; E87.20 Acidosis, unspecified; E87.1 Hypo-osmolality and hyponatremia; Z20.822 Contact with and (suspected) exposure to COVID-19; Z59.00 Homelessness unspecified; K42.9 Umbilical hernia without obstruction or gangrene; I10 Essential (primary) hypertension; Z87.81 Personal history of (healed) traumatic fracture; Z98.890 Other specified postprocedural states; E86.1 Hypovolemia; E87.6 Hypokalemia; Y90.1 Blood alcohol level of 20-39 mg/100 ml; F19.10 Other psychoactive substance abuse, uncomplicated; K70.30 Alcoholic cirrhosis of liver without ascites; D69.59 Other secondary thrombocytopenia; E88.09 Other disorders of plasma-protein metabolism, not elsewhere classified; I48.91 Unspecified atrial fibrillation; F10.229 Alcohol dependence with intoxication, unspecified; E16.2 Hypoglycemia, unspecified; M19.90 Unspecified osteoarthritis, unspecified site; D64.9 Anemia, unspecified
CPT/HCPCS: 31720; 36415; 36600; 70450-TC; 71045-TC; 71250-TC; 80048-TC; 80076-TC; 80202-TC; 82803-TC; 82947-TC; 82962-TC; 83735-TC; 83880; 84100-TC; 84443-TC; 84484-TC; 85025-TC; 85730-TC; 87040-TC; 87081-TC; 93307-TC; 94002-TC; 94003-TC; 94799-TC; 99082-TC; A4216; A4223; A6403; C9803; G0378; G0480; J0171; J0692; J1610; J1720; J2250; J2370; J3370; J3490; J7030; J7040; J7042; J7050; J7060; P9047